=== PATIENT | female | born 1955 | race Caucasian/White ===

== ENCOUNTER → 2017-02-16 | Outpatient (CLI) | payer OTHER | LOC: FIMAGING 09:38 | PROVIDERS: ATTEND Internal Medicine | DX: Z12.31 Encounter for screening mammogram for malignant neoplasm of breast (principal) | CPT/HCPCS: G0202 ==

== ENCOUNTER 2017-05-13 13:41 | Emergency (ER) | payer OTHER ==
[2017-05-13] MEDS ORDERED: ONDANSETRON DISINTEGRATING 4 MG TAB PO ONE (13:49)
--- NOTE | 2017-05-13 15:00 | EDPHY ---
HPI/HX/ROS/PE/MDM Narrative: CHIEF COMPLAINT: Nausea, vomiting, sinus congestion HISTORY OF PRESENT ILLNESS: The patient is a 61 y/o female complaining of nausea, vomiting, and sinus congestion since , 3 days ago. On Sunday she was subjectively febrile. She had one episode of diarrhea on Sunday. Today she woke up with a bad headache and felt lightheaded throughout the day. While driving to the ED she began to feel nauseous and started vomiting. Since her symptoms began she had a cough associated with green sputum and mild green nasal discharge. Due to her symptoms she has experienced a decreased appetite and a a decrease in sleep. Took Mucinex and Advil cold and sinus this morning at 08:30, 7 hours ago. Reports receiving the influenza vaccination this year. Denies history of diabetes or asthma. No fever, chills, chest pain, shortness of breath, palpitations, urinary complaints. REVIEW OF SYSTEMS: Aside from elements discussed in the HPI, a comprehensive 10-point review of systems was reviewed and is negative. PAST MEDICAL HISTORY: Right eye herpes viral keratitis SOCIAL HISTORY: Lives in [place], at bedside VITAL SIGNS: Reviewed by me GENERAL: Congested, tired, well-developed, well-nourished, resting comfortably in no respiratory distress. HEENT: Atraumatic. Eyes: Right eye injected and watery. No icterus. Mouth: moist mucous membranes. No erythema or lesions. Neck: supple with no adenopathy. LUNGS: Clear to auscultation bilaterally, no wheezes, rhonchi or rales. CARDIAC: Regular rate and rhythm, no rubs, murmurs or gallops. ABDOMEN: Soft, nontender, nondistended, bowel sounds normal. BACK: No CVA tenderness. EXTREMITIES: No trauma. No edema. Range of motion is normal throughout. NEURO: Alert and oriented, grossly nonfocal. SKIN: Warm and dry, no rash. PSYCHIATRIC: Normal mentation, no agitation. Portions of this note were transcribed by a phlebotomist medical lab assistant. I personally performed a history, physical exam, medical decision making, and confirmed accuracy of information the transcribed note. ED Course: The patient is a 61 y/o female presenting with nausea, vomiting, and sinus congestion. The sinus congestion started 3 days ago, but the nausea and vomiting began this afternoon. On exam she is congested, but otherwise her lungs and heart sound normal. Labs and influenza swab ordered. 1gm PO Tylenol, 4mg PO Zofran, Afrin Nasal [place], and 1L IV NS administered. 1618: Patient is positive for RSV. 1631: Reassessed patient and discussed laboratory findings. I have prescribed her Azithromycin for sinus congestion and bronchitis; her first dose will be administered in the ED. Return precautions provided; patient and her are comfortable with this plan. MDM: Diff dx considered included but not limited to viral pharyngitis, bacterial pharyngitis, sinusitis, bronchitis, influenza, RSV, viral syndrome. - Data Points Laboratory Results: Laboratory Results 05/13/17 15:04 05/13/17 15:04 Medications Given: Discontinued Medications Acetaminophen (Tylenol) 1,000 mg PO EDNOW ONE Stop: 05/13/17 15:30 Last Admin: 05/13/17 15:31 Dose: 1,000 mg Azithromycin (Zithromax) 500 mg PO EDNOW ONE PRN Reason: Protocol Stop: 05/13/17 16:35 Last Admin: 05/13/17 16:43 Dose: 500 mg Sodium Chloride (Ns) 1,000 mls @ 0 mls/hr IV ONCE ONE PRN Reason: Wide Open Stop: 05/13/17 15:12 Last Admin: 05/13/17 15:12 Dose: 1,000 mls Ondansetron HCl (Zofran Odt) 4 mg PO EDNOW ONE Stop: 05/13/17 13:50 Last Admin: 05/13/17 13:51 Dose: 4 mg Oxymetazoline HCl (Afrin Nasal [place]) 2 sprays EACHNARE EDNOW ONE Stop: 05/13/17 15:30 Last Admin: 05/13/17 15:31 Dose: 2 sprays General Time Seen by Provider: 05/13/17 15:00 Initial Vital Signs: Initial Vital Signs Temperature (C) 37 C 05/13/17 13:46 Heart Rate 62 05/13/17 13:46 Respiratory Rate 18 05/13/17 13:46 Blood Pressure 107/75 05/13/17 13:46 O2 Sat (%) 100 05/13/17 13:46 O2 Delivery Mode Room Air O2 (L/minute) 2 Allergies/Adverse Reactions: No Known Allergies Allergy (Unverified 05/13/17 13:45) Home Medications: Medication Instructions Recorded Azithromycin [Zithromax] 250 mg PO DAILY #4 tab 05/13/17 Mucinex 05/13/17 Departure - Departure Disposition: Home, Routine, Self-Care Clinical Impression: RSV infection Sinusitis Qualifiers: Sinusitis location: maxillary Chronicity: acute Recurrence: non-recurrent Qualified Code(s): J01.00 - Acute maxillary sinusitis, unspecified Upper respiratory infection Qualifiers: URI type: unspecified URI Qualified Code(s): J06.9 - Acute upper respiratory infection, unspecified Condition: Good Instructions: Respiratory Syncytial Virus (ED) Additional Instructions: You have RSV. Please expect to be sick with a cough, body aches, fevers for several days. Most important thing is to drink plenty of fluid, control your symptoms with [id number] medications, and get plenty of rest. Take the Azithromycin as prescribed. If you have a fever, use Tylenol or ibuprofen. You may take both at the same time if needed. Adult Pain & Fever Control: We recommend Acetaminophen (Tylenol) and Ibuprofen (Motrin, Advil) for pain and fever control. When fever is high or pain severe, both drugs can be used at the same time, but at different intervals. Please note the time differences. Your dose is: Acetaminophen [650-1000]mg every 4 to 6 hours Ibuprofen [600]mg every [8] hours with food. If you have a runny nose, I recommend an antihistamine. Antihistamines are often sedating. Claritin and Olive are nonsedating antihistamines. If you are congested, take a decongestant. Afrin nasal spray will help a few have significant sinus congestion. Do not use this for more than 3 days in a row. Flonase nasal spray is also helpful for nasal congestion. If you have a sore throat, take Tylenol, or ibuprofen. Throat lozenges, throat sprays, or salt water gargles may also be helpful. Return to emergency department or seek care urgently if you're symptoms are worsening despite the above treatment, if you develop shortness of breath, if you're unable to drink fluids secondary to throat pain or other issues, if you developed, vomiting, diarrhea, or have recurrent episodes of fainting. Return immediately for high fever, severe headache or neck pain, difficulty breathing, abdominal pain, rash or other worsening of condition. Referrals: Desiree Welsh MD [Primary Care Provider] - As per Instructions Prescriptions: Azithromycin [Zithromax] 250 mg PO DAILY #4 tab Report Scribed for: Xochilt Christopher Report Scribed by: Camila Leon Date of Report: 05/13/17 Time of Report: 15:00
[2017-05-13] MEDS ORDERED: ONDANSETRON 4 MG/2 ML VIAL ONE (15:06)
[2017-05-13] MEDS ORDERED: NS 1,000 ML IV ONE (15:11)
[2017-05-13 15:15] VITALS: TEMP 98.1
[2017-05-13] MEDS ORDERED: ACETAMINOPHEN 500 MG TAB PO ONE (15:29)
[2017-05-13] MEDS ORDERED: OXYMETAZOLINE 30 ML NASAL SPRAY EACHNARE ONE (15:29)
[2017-05-13] MEDS ORDERED: OXYMETAZOLINE 30 ML NASAL SPRAY ONE (15:30)
[2017-05-13 15:40] LABS: PLATELET COUNT 183 10^3/uL (150-400)
[2017-05-13] MEDS ORDERED: AZITHROMYCIN 250 MG TAB PO ONE (16:34)
[2017-05-13 16:50] VITALS: BP 121/78; PULSE 66; RESP 16; O2SAT 96
== END 2017-05-13 16:49 | disposition home or self-care (01) ==
DX: J01.00 Acute maxillary sinusitis, unspecified (principal); J06.9 Acute upper respiratory infection, unspecified; B97.4 Respiratory syncytial virus as the cause of diseases classified elsewhere
CPT/HCPCS: J2405

== ENCOUNTER → 2018-02-15 | Outpatient (CLI) | payer OTHER | LOC: FIMAGING 11:31 | PROVIDERS: ATTEND Obstetrics & Gynecology | DX: Z12.31 Encounter for screening mammogram for malignant neoplasm of breast (principal) ==